=== PATIENT | female | born 1960 | race Asian ===

== ENCOUNTER 2018-11-03 20:50 | Emergency (ER) | payer BC ==
[~2018-11-03] VITALS: Ht 162.6 cm; Wt 64.9 kg
[2018-11-03 20:54] VITALS: Ht 162.6 cm; Wt 64.9 kg
[2018-11-04 01:27] VITALS: BP 115/67
== END 2018-11-04 01:27 | disposition home or self-care (01) ==
LOC: ED 20:50
DX: Z48.01 Encounter for change or removal of surgical wound dressing (principal); L08.9 Local infection of the skin and subcutaneous tissue, unspecified; E11.9 Type 2 diabetes mellitus without complications
CPT/HCPCS: 82962; J0696